=== PATIENT | female | born 1985 | race Caucasian/White ===

== ENCOUNTER → 2018-12-04 | Day surgery (SDC) | payer OTHER ==
[~2018-12-04] MED LIST: FENTANYL CITRATE/PF 100MCG/2 ML INJ ONE; LIDOCAINE HCL 2% LOCAL INJ 5 ML SDV VIAL INJ ONE; METOCLOPRAMIDE HCL 10 MG/2ML VIAL ONE; MIDAZOLAM HCL 2 MG/2 ML VIAL ONE; PANTOPRAZOLE 40 MG 10ML VIAL ONE; PROPOFOL IV EMULSION 10 MG/ML 50 ML VIAL ONE; RANITIDINE HCL150 MG PO; TYLENOL WITH C1 EACH PO
--- NOTE | 2018-12-04 10:04 | Diagnostic Imaging Report ---
EXAM: Right upper quadrant abdominal ultrasound INDICATION: Right upper quadrant pain COMPARISON: None. TECHNIQUE: Transverse and longitudinal images of the right upper quadrant abdomen were obtained FINDINGS: Liver: Size: 10.6 cm in the right midclavicular line, normal Appearance: Normal echogenicity, smooth contour Mass: No focal masses Gallbladder: There is a 2.5 cm stone in the gallbladder. No gallbladder distention, wall thickening, pericholecystic fluid, or sonographic Valadez's sign. Gallbladder wall measures 1 mm. Bile Ducts: Intrahepatic Ducts: No dilatation Extrahepatic Ducts: Common bile duct measures 1 mm. Pancreas: Visualized portions of the pancreatic head, neck and proximal body are normal. Kidney: The right kidney measures 8.9 cm without evidence of hydronephrosis or stone. Vessels: Aorta: Visualized portions are normal Inferior Vena Cava: Visualized portions are normal Main Portal Vein: 0.8 cm, normal size with hepatopetal flow. Free Fluid: No ascites or pleural effusion IMPRESSION: Cholelithiasis (2.5cm gallstone) without sonographic evidence of cholecystitis. Signed by: Virgilio Maldonado MD on 12/04/2018 10:00 AM
[2018-12-04 15:50] VITALS: BP 118/70
--- NOTE | 2018-12-05 06:07 | Operative Report ---
DATE OF PROCEDURE: 12/04/2018 SURGEON: Boni Contreras MD PROCEDURE: EGD with biopsies. INDICATIONS FOR EGD: Acid reflux, heartburn. MEDICATIONS: The patient was done under MAC. Please see anesthesiologist's note. PROCEDURE IN DETAIL: With the patient in left lateral decubitus position, the flexible fiberoptic Olympus gastroscope was introduced into the esophagus under direct visualization without any difficulty. A minute nodule was noted in the cervical esophagus that was removed per the cold biopsy forceps. Mucosa overlying the distal esophagus revealed some patchy areas of erythema and there was a focal raised area at the GE junction that was biopsied. The scope was then advanced with ease into the stomach. Mucosa overlying the antrum and the body revealed some diffuse erythema, xvyu-op-yytxezpr edema, and biopsies were obtained and sent to stain for Helicobacter pylori. Pylorus was normal contour and shape, was intubated with ease and the scope was advanced all the way to the second portion of the duodenum. Biopsies were obtained from the second portion as well as the duodenal bulb to rule out sprue. The scope was then withdrawn back into the stomach and retroflexed, and mucosa overlying the fundus and cardia appeared to be within normal limits. The scope was then straightened out, was subsequently withdrawn, and the patient tolerated procedure well. IMPRESSION: 1. Minute nodule, cervical esophagus, removed per the cold biopsy forceps. 2. Distal esophagitis. 3. Focal raised area, gastroesophageal junction, biopsied. 4. Gastritis, biopsied, biopsies sent to stain for Helicobacter pylori. 5. Rule out sprue. PLAN: Follow up histology. Initiate Protonix 40 mg 1 p.o. q.a.m. before meals. Boni Contreras MD [facility] [place] /[id number] cc: Naeem Biggs DO
== END | disposition home or self-care (01) ==
LOC: OR 08:38
PROVIDERS: ATTEND Internal Medicine Gastroenterology
DX: R10.11 Right upper quadrant pain (principal); K21.0 Gastro-esophageal reflux disease with esophagitis; R12 Heartburn; Z88.0 Allergy status to penicillin; Z68.27 Body mass index [BMI] 27.0-27.9, adult; K29.70 Gastritis, unspecified, without bleeding; K29.50 Unspecified chronic gastritis without bleeding
CPT/HCPCS: 36415; 43239; 76705; 84702; C9113; J2001; J2250; J2704; J2765; J3010

== ENCOUNTER 2018-12-06 12:02 | Observation (INO) | payer OTHER ==
[~2018-12-06] VITALS: Ht 149.9 cm; Wt 60.3 kg
[~2018-12-06 12:02] MED LIST changes: -FENTANYL CITRATE/PF 100MCG/2 ML INJ ONE; -LIDOCAINE HCL 2% LOCAL INJ 5 ML SDV VIAL INJ ONE; -METOCLOPRAMIDE HCL 10 MG/2ML VIAL ONE; -MIDAZOLAM HCL 2 MG/2 ML VIAL ONE; -PANTOPRAZOLE 40 MG 10ML VIAL ONE; -PROPOFOL IV EMULSION 10 MG/ML 50 ML VIAL ONE; -TYLENOL WITH C1 EACH PO
--- OUTSIDE RECORDS SUMMARY | 2018-12-06 12:06 | XMS REPORT | Clinical Summary ---
Author Author [facility] Address Unknown Phone Unavailable Care Team Providers Care Pedodontist Name Role Phone Edmundo Biggs MD PCP Allergies Comments Active Allergy Reactions Severity Noted Date Vomiting and diarrhea Penicillins GI 10/29/2015 Intolerance Medications End Date Status Medication Sig Dispensed Refills Start Date Active ibuprofen (ADVIL,MOTRIN) Take 400 mg 0 400 MG tablet by mouth every 6 (six) hours as needed for mild pain. Active amLODIPine (NORVASC) 5 MG Take 5 mg by 0 tablet mouth daily. 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 Mechanical complication of internal orthopedic device 10/29/2015 Post-traumatic osteoarthritis of right hip 10/29/2015 Gait abnormality 10/29/2015 Muscle weakness of lower extremity 10/29/2015 Muscle atrophy of lower extremity 10/29/2015 Family History Medical History Relation Name Comments Diabetes Father Heart attack Father Heart disease Father Hypertension Father Stroke Father Hypertension Mother Relation Name Status Comments Father Alive Mother Alive Social History Date Tobacco Use Types Packs/Day Years Used Current Every Day Smoker Cigarettes 1 16 Drinks/Week oz/Week Comments Alcohol Use No Sex Assigned at Date Recorded Not on file Industry Job Start Date Occupation Not on file Not on file Not on file Travel End Travel History Travel Start No recent travel history available. Last Filed Vital Signs Not on file Plan of Treatment Health Maintenance Due Date Last Done Comments CERVICAL CANCER SCREENING 2005 INFLUENZA VACCINE 10/10/2018 Implants Device Identifier Shelf Expiration Date Model / Serial / Lot Implanted Type Area Manufactur er 04/11/2025 [id number] / / [id number] Shell Actblr Clstr Hol Sz Ll 58mm Hip Joint Right: Hip [employer] Continuum - [id number] Implants Implanted: 11/24/2015 at [facility] (Quantity not on file) 04/11/2024 [id number] / / [id number] Head Fml 02/22 Tprd Cermc 40x0mm Hip Joint Right: Hip [employer] Biolox Delta - [id number] Implants Implanted: 11/24/2015 at [facility] (Quantity not on file) 05/09/2020 00 [id number] 40 / / [id number] Vit E Liner Neutral Ll 40 IPM Right: Hip [employer] - [id number] IMPLANT Implanted: 11/24/2015 at [facility] (Quantity not on file) 03/11/2021 01 [id number] / / [id number] Fitmore Hip Stem B, Size 1 - IPM Right: Hip [employer] [id number] IMPLANT Implanted: 11/24/2015 at [facility] (Quantity not on file) Results Not on fileafter 12/05/2017 Insurance Type Payer Benefit Subscriber ID Effective Phone Address Plan / Dates Group PPO CIGNA CIGNA PPO xxxxxxxxxxx 2016-P resent PPO BCBS BCBS OUT xxxxxxxxxxxx 2015-P OF STATE resent Advance Directives For more information, please contact: [phone] Patient Title One Reading Teacher Explanation Type Date Recorded Advance Directives, Living Will and Medical Power of Credit Analysis Manager
--- OUTSIDE RECORDS SUMMARY | 2018-12-06 12:06 | XMS REPORT ---
Author Author [facility] Address Unknown Phone Unavailable Care Team Providers Care Com Writer Name Role Phone NICO KYLE Unavailable Unavailable Problems This patient has no known problems. Allergies, Adverse Reactions, Alerts This patient has no known allergies or adverse reactions. Medications This patient has no known medications. Results Test Description Test Time Test Comments Text Results Atomic Results Result Comments US ABDOMEN LIMITED 2018-12-04 09:58:00 [place] [address] Patient Name: SHANNON QUESADA MR #: [id number] : 1985 Age/Sex: 33/F Req #: [id number] Adm Physician: Ordered by: NICO KYLE MD Report #: [id number] Location: OR Room/Bed: Procedure: [id number] US/US ABDOMEN LIMITED Exam Date: 12/04/18 Exam Time: 915 REPORT STATUS: Signed EXAM: Right upper quadrant abdominal ultrasound INDICATION: Right upper quadrant pain COMPARISON: None. TECHNIQUE: Transverse and longitudinal images of the right upper quadrant abdomen were obtained FINDINGS: Liver: Size: 10.6 cm in the right midclavicular line, normal Appearance: Normal echogenicity, smooth contour Mass: No focal masses Gallbladder: There is a 2.5 cm stone in the gallbladder. No gallbladder distention, wall thickening, pericholecystic fluid, or sonographic Valadez's sign. Gallbladder wall measures 1 mm. Bile Ducts: Intrahepatic Ducts: No dilatation Extrahepatic Ducts: Common bile duct measures 1 mm. Pancreas: Visualized portions of the pancreatic head, neck and proximal body are normal. Kidney: The right kidney measures 8.9 cm without evidence of hydronephrosis or stone. Vessels: Aorta: Visualized portions are normal Inferior Vena Cava: Visualized portions are normal Main Portal Vein: 0.8 cm, normal size with hepatopetal flow. Free Fluid: No ascites or pleural effusion IMPRESSION: Cholelithiasis (2.5cm gallstone) without sonographic evidence of cholecystitis. Signed by: Eliot Tijerina MD on 12/04/2018 10:00 AM Dictated By: ELIOT TIJERINA MD 1000 Transcribed By: KIP on 12/04/18 1000 COPY TO: NICO KYLE MD
[2018-12-06] MEDS ORDERED: LIDOCAINE HCL 2% LOCAL INJ 5 ML SDV VIAL INJ ONE (14:10)
[2018-12-06] MEDS ORDERED: SUCCINYLCHOLINE 200 MG/10 ML SYR ONE (14:10)
[2018-12-06] MEDS ORDERED: ONDANSETRON HCL INJ 2MG/ML 2ML 2 MG/ML VIAL ONE ×2 (14:10→15:03)
[2018-12-06] MEDS ORDERED: DESFLURANE 240 ML BTL INH ONE (14:10)
[2018-12-06] MEDS ORDERED: PROPOFOL IV EMULSION 10 MG/ML 20 ML VIAL ONE (14:10)
[2018-12-06] MEDS ORDERED: DEXAMETHASONE SOD PHOS INJ 4 MG/ML VIAL ONE (14:10)
[2018-12-06] MEDS ORDERED: ACETAMINOPHEN 1000 MG/100 ML IV ONE (14:10)
[2018-12-06] MEDS ORDERED: ONDANSETRON HCL INJ 2MG/ML 2ML 2 MG/ML VIAL IV PRN (14:30)
--- NOTE | 2018-12-06 14:56 | NUR ---
[facility] CALLED FOR TRANSPORT 45MIN ETA
[2018-12-06] MEDS ORDERED: SODIUM CHLORIDE 0.9% 1000ML 1,000 ML ONE (15:03)
[2018-12-06] MEDS: SODIUM CHLORIDE 0.9% 1000ML 1,000 ML IV SCH ×2 (15:04→22:20)
--- OUTSIDE RECORDS SUMMARY | 2018-12-06 15:24 | XMS REPORT | Clinical Summary ---
Author Author [facility] Address Unknown Phone Unavailable Care Team Providers Care Shipper And Receiving Name Role Phone Edmundo Biggs MD PCP [...] Lot Implanted Type Area Manufactur er 04/11/2025 [id number] / / [id number] Shell Actblr Clstr Hol Sz Ll 58mm Hip Joint Right: Hip [employer] Continuum - [id number] Implants Implanted: 11/24/2015 at [facility] (Quantity not on file) 04/11/2024 [id number] / / [id number] Head Fml 02/22 Tprd Cermc 40x0mm Hip Joint Right: Hip [employer] Biolox Delta - [id number] Implants Implanted: 11/24/2015 at [facility] (Quantity not on file) 05/09/2020 00 [id number] 40 / / [id number] Vit E Liner Neutral Ll 40 IPM Right: Hip [employer] - [id number] IMPLANT Implanted: 11/24/2015 at [facility] (Quantity not on file) 03/11/2021 01 [id number] / / [id number] Fitmore Hip Stem B, Size 1 - IPM Right: Hip [employer] [id number] IMPLANT Implanted: 11/24/2015 at [facility] (Quantity not on file) Results Not on fileafter 12/05/2017 Insurance Type Payer Benefit Subscriber ID Effective Phone Address Plan / Dates Group PPO CIGNA CIGNA PPO xxxxxxxxxxx 2016-P resent PPO BCBS BCBS OUT xxxxxxxxxxxx 2015-P OF STATE resent Advance Directives For more information, please contact: [phone] Patient Back End Engineer Explanation Type Date Recorded Advance Directives, Living Will and Medical Power of Song Writer
[2018-12-06 16:27] VITALS: BP 142/94
[2018-12-06] MEDS ORDERED: DIATRIZOATE MEGL/DIATRIZOA SOD 30 ML BTL PO ONE (17:59)
[2018-12-06] MEDS ORDERED: SODIUM CHLORIDE 0.9% 50ML 50 ML ONE (18:52)
[2018-12-06 18:53] LABS: BILIRUBIN,URINE NEGATIVE (NEGATIVE); CLARITY,URINE CLEAR (CLEAR); COLOR,URINE YELLOW (YELLOW); KETONES,URINE NEGATIVE (NEGATIVE); LEUKOCYTE ESTERASE ,URINE NEGATIVE (NEGATIVE); NITRITE,URINE NEGATIVE (NEGATIVE); PROTEIN,URINE DIPSTICK NEGATIVE (NEGATIVE); URINE UROBILINOGEN 0.2 mg/dL (0.2 - 1)
[2018-12-06] MEDS ORDERED: IOPAMIDOL 370 MG/ML 200 ML INFUS..BTL INJ ONE ×2 (18:53→19:02)
--- NOTE | 2018-12-06 18:56 | NUR ---
REPORT RECEIVED FOR PATIENT. PT CURRENTLY OFF UNIT AT RADIOLOGY FOR IMAGES.
--- NOTE | 2018-12-06 19:03 | NUR ---
PT RETURNED BY WHEELCHAIR FROM RADIOLOGY. PT IS AAOX3, RR EVEN AND NON-LABORED, ON ROOM AIR. NO S/SX OF DISTRESS NOTED. PT AMBULATED TO BATHROOM AND BACK TO BED WITHOUT ASSIST. LEFT PT SITTING ON SIDE OF BED, BED IN LOW LOCKED POSITION, SIDE RAILS UPX2, CALL LIGHT AND PHONE WITHIN REACH.
[2018-12-06 19:07] LABS: BACTERIA,URINE MODERATE /HPF; EPITHELIAL CELLS,URINE MANY /LPF; RBC,URINE 0-5 /HPF (0-5)
[2018-12-06] MEDS: CEFTRIAXONE SOD 2 GM/NS 100 ML 100 ML IV SCH (19:10)
--- NOTE | 2018-12-06 19:16 | Diagnostic Imaging Report ---
Frontal and lateral views of the chest. HISTORY: Preop, gallstone surgery, cough COMPARISON: Chest radiographs February 07, 2007. DISCUSSION: Lungs: Prominence of the peribronchial interstitial markings. No evidence of a consolidative pneumonia or pulmonary alveolar edema. Pleura: No pleural effusion or pneumothorax. Heart and mediastinum: The cardiomediastinal silhouette appear(s) unremarkable. Bones and soft tissues: Appear unremarkable. IMPRESSION: 1. Findings which can be seen in the setting of a nonspecific bronchitis. 2. No consolidative pneumonia. Signed by: Dr. Alfie Raya D.O., M.M.M. on 12/06/2018 7:13 PM
--- NOTE | 2018-12-06 19:24 | NUR ---
PAGE PLACED FOR MD WOODS CONCERNING PT REPORTS OF ACID REFLUX. WAITING FOR CALLBACK.
--- NOTE | 2018-12-06 19:29 | NUR ---
SPOKE WITH MD WOODS CONCERNING PT REPORTS OF ACID REFLUX. NEW ORDERS RECEIVED.
[2018-12-06 20:15] VITALS: BP 123/63
--- NOTE | 2018-12-06 20:22 | Diagnostic Imaging Report ---
EXAM: CT of the abdomen and pelvis WITH contrast HISTORY: Gallstones, right upper quadrant abdominal pain, right hip replacement COMPARISON: Right upper quadrant ultrasound December 04, 2018.. TECHNIQUE: The abdomen and pelvis were scanned utilizing a multidetector helical scanner. Coronal and sagittal reformats are provided. PROTOCOL: Routine IV CONTRAST: 100 cc of Isovue-370. ORAL CONTRAST: Dilute Gastrografin RADIATION DOSE: Total DLP: 248.07 mGy*cm Estimated effective dose: (DLP x 0.015 x size factor) Dose modulation, iterative reconstruction, and/or weight based adjustment of the mA/kV was utilized to reduce the radiation dose to as low as reasonably achievable. COMPLICATIONS: None FINDINGS: LOWER THORAX: Mild bibasilar atelectasis. HEPATOBILIARY: No mass. No biliary dilation. A 1.2 cm peripheral calcified stone near the fundus of the gallbladder. No fat stranding about the gallbladder. SPLEEN: No splenomegaly. PANCREAS: No focal masses or ductal dilatation. ADRENALS: No discrete adrenal nodule. KIDNEYS/URETERS: No hydronephrosis, stones, or definite solid mass lesions. PELVIC ORGANS/BLADDER: Beam dasilva artifacts associated with the right hip arthroplasty limits regional evaluation. GI TRACT: The stomach is decompressed, which limits evaluation. No dilation or wall thickening identified. Repeat contrast throughout the small bowel. PERITONEUM / RETROPERITONEUM: No free air or fluid. LYMPH NODES: No pathologically enlarged lymph node. VESSELS: Unremarkable. BONES and JOINTS: No aggressive osseous lesion or acute fracture. The femoral component of the total hip arthroplasty is not entirely included. SOFT TISSUES: Unremarkable. IMPRESSION: 1. Cholelithiasis. 2. Status post total right hip arthroplasty, as above. Signed by: Dr. Alfie Raya D.O., M.M.M. on 12/06/2018 8:19 PM
[2018-12-06] MEDS: PANTOPRAZOLE 40 MG 10ML VIAL IV SCH (20:26)
[2018-12-06] MEDS: METRONIDAZOLE 500MG/NS 100ML 100 ML IV SCH (20:40)
[2018-12-06 20:49] VITALS: BP 123/63
--- NOTE | 2018-12-06 20:50 | NUR ---
CT RESULTS READ TO MD Fatimah MCBRIDE. NEW ORDERS RECEIVED TO CONSULT MD Pascual KYLE.
--- NOTE | 2018-12-06 20:52 | NUR ---
CONSULTATION CALLED TO MD Pascual KYLE CONCERNING CONSULTATION. WAITING FOR CALLBACK.
[2018-12-07] VITALS (8 sets, daily range): BP systolic 100–159; BP diastolic 51–83
--- NOTE | 2018-12-07 00:09 | Consultation ---
DATE OF CONSULTATION: REASON FOR CONSULTATION: Cholecystitis. HISTORY OF PRESENT ILLNESS: The patient is a 33-year-old female, who was admitted from the outlying emergency room because of severe right upper quadrant pain. She was a known case of gallstones. She had recently had an EGD by Dr. Boni Contreras and she was known to have gallstones, but apparently at that time they were asymptomatic and she was also according to her history found to have reflux. According to the patient, the pain got worse today and she was told by Dr. Boni Contreras to come to the emergency room for further treatment. The patient has a history of actually several years history of right upper quadrant pain associated with fatty food intolerance and some nausea. The symptoms are getting worse recently. PAST MEDICAL HISTORY: She has no medical problems. 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 MEDICATIONS: She is currently taking no medicine. ALLERGIES: SHE IS ALLERGIC TO PENICILLIN. SOCIAL HISTORY: The patient smokes and drinks. FAMILY HISTORY: Noncontributory. REVIEW OF SYSTEMS: As per history of present illness. She complains of cough. Her last menstrual period was yesterday and described as normal. She is 0. The patient in addition to what has been stated in the history of present illness complains also of right-sided lower back pain as well as right lower quadrant pain. PHYSICAL EXAMINATION: GENERAL: Reveals a 33-year-old female, awake, alert. She complains of right upper quadrant pain, which at this point is subsiding. HEAD, EYES, EARS, NOSE, AND THROAT: Reveal no acute process. NECK: Supple. LUNGS: Clear. HEART: Reveals sinus rhythm. ABDOMEN: Soft. There is some tenderness on the right side of the abdomen. There are no ventral hernias. No palpable masses. VAGINAL: Deferred. EXTREMITIES: Reveal no clubbing, cyanosis or edema. NEUROLOGIC: Nonfocal. ADMISSION LABORATORY DATA: Reveals a white count of 9 with hematocrit of 40 with a normal platelet count. Normal PT. The admission urinalysis reveals negative nitrite and negative leukocyte esterase. Admission chest x-ray reveals no acute process. Admission ultrasound reveals a 2.5 cm stone in the gallbladder. There is no wall thickening and ductal anatomy is normal. ASSESSMENT: Right upper quadrant pain, severe with a large stone. The patient also complains of right lower quadrant pain. Impression is cholecystitis. PLAN: The plan is to admit the patient. Intravenous antibiotics. Because of the complaints of pain in the right lower quadrant, I am going to go ahead and order a CAT scan of the abdomen and pelvis to make sure that there is no other pathology in the area of the pelvis of the right lower quadrant. Thank you very much. MD BLAIRE Maria/MODL /[id number]
--- NOTE | 2018-12-07 03:00 | NUR ---
NOTIFIED MD Pascual KYLE OF CONSULTATION. NO NEW ORDERS.
[2018-12-07] MEDS: METRONIDAZOLE 500MG/NS 100ML 100 ML IV SCH (04:06)
[2018-12-07] MEDS: SODIUM CHLORIDE 0.9% 1000ML 1,000 ML IV SCH (05:41)
[2018-12-07 06:45] LABS: BASOPHILS % 0.3 % (0.0-1.0); EOSINOPHILS # (AUTO) 0.1 (0.0-0.4); EOSINOPHILS % 0.8 % (0.0-6.0); HEMATOCRIT 35.6 % (34.2-44.1); HEMOGLOBIN 11.7 g/dL (12.0-16.0); LYMPHOCYTES # (AUTO) 1.7 (1.0-3.2); LYMPHOCYTES % 28.6 % (18.0-39.1); MEAN CORPUSCULAR HEMOGLOBIN 32.1 pg (28-32); MEAN CORPUSCULAR HGB CONC 32.9 g/dL (31-35); MEAN CORPUSCULAR VOLUME 97.5 fL (81-99); MONOCYTES # (AUTO) 0.5 (0.2-0.8); NEUTROPHILS # (AUTO) 3.7 (2.1-6.9); NEUTROPHILS % 61.1 % (38.7-80.0); PLATELET COUNT 176 x10e3/uL (140-360); RED BLOOD COUNT 3.65 x10e6/uL (3.6-5.1); RED CELL DISTRIBUTION WIDTH 13.8 % (11.7-14.4)
[2018-12-07 06:55] LABS: INR 0.91; PROTHROMBIN TIME 12.7 seconds (11.9-14.5)
[2018-12-07 06:56] LABS: PARTIAL THROMBOPLASTIN TIME 28.3 seconds (23.8-35.5)
[2018-12-07 07:04] LABS: ALANINE AMINOTRANSFERASE 13 IU/L (0-55); ALBUMIN 2.7 g/dL (3.5-5.0); ALBUMIN/GLOBULIN RATIO 1.1 (0.8-2.0); ALKALINE PHOSPHATASE 83 IU/L (40-150); ANION GAP 9.6 mmol/L (8-16); BLOOD UREA NITROGEN 8 mg/dL (7-26); BUN/CREATININE RATIO 9 (6-25); CALCIUM 7.8 mg/dL (8.4-10.2); CARBON DIOXIDE 25 mmol/L (22-29); CHLORIDE 112 mmol/L (98-107); CREATININE, SERUM 0.87 mg/dL (0.57-1.11); EST GLOMERULAR FILTRATION RATE > 60 ML/MIN (60-); GLUCOSE 77 mg/dL (74-118); POTASSIUM 3.6 mmol/L (3.5-5.1); SODIUM 143 mmol/L (136-145)
--- NOTE | 2018-12-07 07:50 | Diagnostic Imaging Report ---
EXAMINATION: CHEST SINGLE (PORTABLE) INDICATION: Preop radiograph COMPARISON: Chest radiograph 12/06/2018 FINDINGS: AP view TUBES and LINES: None. LUNGS: Lungs are well inflated. Lungs are clear. There is no evidence of pneumonia or pulmonary edema. PLEURA: No pleural effusion or pneumothorax. HEART AND MEDIASTINUM: The cardiomediastinal silhouette is unremarkable. BONES AND SOFT TISSUES: No acute osseous lesion. Soft tissues are unremarkable. UPPER ABDOMEN: No free air under the diaphragm. IMPRESSION: No acute thoracic radiographic abnormality. Signed by: Lalo Orellana DO on 12/07/2018 7:47 AM
[2018-12-07] MEDS ORDERED: BUPIVACAINE 0.25%/EPI 30ML SDV INJ ONE (08:48)
[2018-12-07] MEDS: PANTOPRAZOLE 40 MG 10ML VIAL IV SCH ×3 (09:00→20:24)
[2018-12-07] MEDS ORDERED: SCOPOLAMINE 1.5 MG PATCH ONE (09:04)
--- NOTE | 2018-12-07 09:50 | NUR ---
PT NOT IN ROOM WHEN ATTEMPTED DPA
[2018-12-07] MEDS ORDERED: ONDANSETRON HCL INJ 2MG/ML 2ML 2 MG/ML VIAL IV PRN (11:00)
[2018-12-07] MEDS ORDERED: HYDROCODONE/APAP 7.5MG-325MG 1 EA TAB PO PRN (11:00)
[2018-12-07] MEDS ORDERED: FENTANYL CITRATE/PF 100MCG/2 ML INJ ONE ×2 (11:18→14:31)
[2018-12-07] MEDS: DEXTROSE 5%/LACTATED RINGERS 1,000 ML IV SCH (11:48)
[2018-12-07] MEDS: HYDROMORPHONE 1MG/1ML INJ IV PRN (11:55)
--- NOTE | 2018-12-07 11:55 | Operative Report ---
DATE OF PROCEDURE: 12/07/2018 SURGEON: Sergio Solano MD PREOPERATIVE DIAGNOSIS: Cholelithiasis, cholecystitis. POSTOPERATIVE DIAGNOSIS: Cholelithiasis, cholecystitis. PROCEDURE PERFORMED: Laparoscopic cholecystectomy. ANESTHESIA: General. ESTIMATED BLOOD LOSS: Minimal. DRAINS: None. COMPLICATIONS: None. INDICATION AND FINDINGS: A 33-year-old female admitted because of severe right upper quadrant pain. She had longstanding history of right upper quadrant pain and fatty food intolerance. She was evaluated by Gastroenterology and found to have cholelithiasis and reflux. The patient's pain has been present for symptoms, got really worse the day of admission, reason for the admission. Her liver chemistries were normal preoperatively. Then, an ultrasound revealed a large stone. No ductal dilatation. The CT scan of the abdomen revealed no other pathology. The patient's intraoperative findings were cholelithiasis with somewhat thickened and long gallbladder wall containing a large stone in the neck. There was no ductal dilatation. All of this was consistent with chronic cholecystitis. DESCRIPTION OF PROCEDURE: With the patient lying on the operative table in the supine position after administration of general anesthesia, she was prepped and draped for laparoscopic cholecystectomy. The procedure was begun by establishing the pneumoperitoneum in the right upper quadrant midclavicular line and then pneumoperitoneum was insufflated to 15 mm of pressure. The camera introduced through a 5 mm trocar and then a 10/11 umbilical port and subxiphoid port were placed under direct vision with the camera. Then we placed a right anterior axillary line, 5 mm trocar also and then we had to put the left upper quadrant 5 mm trocar in order to expose the operative field. Once we obtained adequate exposure, retracted the gallbladder cephalad using grasping forceps in the right midclavicular line and the neck laterally and inferiorly with another grasper, began the dissection high in the neck, identified the cystic duct, continued the dissection until we saw the cystic artery. At that point, we transected the cystic duct between titanium clips and also the cystic artery was transected in the same manner. The common duct was identified prior to the transection of two structure and the gallbladder was taken down the liver bed using electrocautery traction and dissection. The gallbladder was detached and placed in an endobag and removed through the umbilical port. The right upper quadrant was then again inspected, irrigated. There was no bile leak, no bleeding, no apparent bowel injury. Then, we released the pneumoperitoneum under direct vision with the camera. We did not see any trocar site. Then, we closed the wound using 0-Vicryl for the umbilical fascia, 3-0 Vicryl for the subcutaneous tissue in that location as well as the subxiphoid port and the skin of all the ports was closed using cindy. 0.25% Marcaine with epinephrine was given as local block at the end of the case. The patient tolerated the procedure well, taken to recovery room in stable condition. MD BLAIRE Maria/CHAD /[id number]
[2018-12-07] MEDS ORDERED: KETOROLAC TROMETHAMINE 30 MG/ML VIAL IM PRN (12:00)
[2018-12-07] MEDS ORDERED: MIDAZOLAM HCL 2 MG/2 ML VIAL ONE (14:31)
--- NOTE | 2018-12-07 15:36 | History and Physical ---
HISTORY OF PRESENT ILLNESS: The patient is a 33-year-old female with past medical history significant for gallstones. She was send by Dr. Karthikeyan Contreras to the emergency room due to acute cholecystitis. She also underwent acute cholecystectomy. The patient of course complaining of pain in the abdomen. No other significant complaints. REVIEW OF SYSTEMS: CARDIOVASCULAR: No chest pain or palpitation. RESPIRATORY: No shortness of breath. No cough. GASTROINTESTINAL: She did have abdominal pain . No vomiting. No diarrhea. GENITOURINARY: No urinary frequency. No dysuria. ALLERGIES: SHE IS ALLERGIC TO PENICILLIN. SOCIAL HISTORY: She does not smoke. She does not drink. PHYSICAL EXAMINATION: VITAL SIGNS: Blood pressure 159/82, temperature 95.6, heart rate 95 per minute, respiratory rate 20 per minute, oxygen saturation 96%. HEART: Showed regular rhythm. Normal S1, S2 sound. LUNGS: Clear bilaterally. ABDOMEN: Soft. She has tenderness around the incision site. LABORATORY DATA: On the BMP; sodium 143, potassium 3.6, chloride 112, CO2 25, BUN 9, creatinine 0.87, glucose 77. On the CBC, white count 6.02, hemoglobin 11.7, hematocrit 35.6, platelet count of 176,000. PT 12.7, INR 0.91, PTT 28.3. AST 16, ALT 13, total bilirubin is 0.5, alkaline phosphatase 83. PLAN OF TREATMENT: Of course, the patient is going to be on liquid diet after surgery. She is on ceftriaxone 2 g IV daily, D5 Ringer's lactate 75 mL an hour. She has Dilaudid 1 mg IV q.4 hours as needed for vxxakkrd-cl-lnycjb pain, [place] 7.5/325 mg tablets one tablet q.4 hours as needed for moderate pain. She is taking Toradol 30 mg IV q.6 hours as needed for severe pain, Zofran 4 mg IV q.4 hours as needed for nausea and vomiting, Protonix 40 mg IV twice a day, and Zofran 4 mg IV q.4 hours as needed. We are going to continue monitoring the patient. Continue monitoring hemoglobin and hematocrit. The patient is doing well after surgery. MD EDSON Khan/CHAD Jaquez: 12/07/2018 12:57:48 /[id number]
[2018-12-07] MEDS: CEFTRIAXONE SOD 2 GM/NS 100 ML 100 ML IV SCH (17:48)
--- NOTE | 2018-12-07 19:18 | NUR ---
WALKING ROUNDS PERFORMED, RECEIVED PT LAYING SEMI FOWLERS IN BED, AAOX3, RR EVEN AND NON-LABORED, ON ROOM AIR. NO S/SX OF DISTRESS NOTED. X4 TROCAR TO ANTERIOR ABD NOTED TO BE CDI. LEFT PT LAYING SEMI FOWLERS IN BED, BED IN LOW LOCKED POSITION, SIDE RAILS UPX2, CALL LIGHT AND PHONE WITHIN REACH.
--- NOTE | 2018-12-07 19:45 | NUR ---
PT AMBULATING IN [place] WITH FAMILY AT SIDE. STEADY GAIT NOTED.
[2018-12-08] MEDS: DEXTROSE 5%/LACTATED RINGERS 1,000 ML IV SCH ×2 (00:19→02:34)
[2018-12-08 00:59] VITALS: BP 110/65
[2018-12-08] MEDS: HYDROMORPHONE 1MG/1ML INJ IV PRN (02:44)
[2018-12-08] MEDS ORDERED: METOCLOPRAMIDE HCL 10 MG/2ML VIAL IV ONE (03:15)
[2018-12-08] MEDS ORDERED: PANTOPRAZOLE 40 MG 10ML VIAL IV ONE (04:00)
[2018-12-08 05:20] VITALS: BP 113/66
[2018-12-08 08:35] LABS: BASOPHILS % 0.1 % (0.0-1.0); HEMATOCRIT 36.4 % (34.2-44.1); HEMOGLOBIN 11.6 g/dL (12.0-16.0); LYMPHOCYTES # (AUTO) 1.1 (1.0-3.2); MEAN CORPUSCULAR HEMOGLOBIN 31.7 pg (28-32); MEAN CORPUSCULAR HGB CONC 31.9 g/dL (31-35); MEAN CORPUSCULAR VOLUME 99.5 fL (81-99); MONOCYTES % 9.9 % (4.4-11.3); NEUTROPHILS % 78.7 % (38.7-80.0); PLATELET COUNT 176 x10e3/uL (140-360); RED BLOOD COUNT 3.66 x10e6/uL (3.6-5.1); RED CELL DISTRIBUTION WIDTH 13.7 % (11.7-14.4)
[2018-12-08 08:57] VITALS: BP 115/69
[2018-12-08] MEDS: PANTOPRAZOLE 40 MG 10ML VIAL IV SCH (08:57)
[2018-12-08 09:17] VITALS: BP 115/69
--- NOTE | 2018-12-08 11:31 | NUR ---
Spoke with Dr. Estevez at this time. Received discharge orders for the patient.
[2018-12-08] MEDS ORDERED: TYLENOL WITH C1 EACH PO (11:33)
[2018-12-08 11:50] VITALS: BP 143/88
--- NOTE | 2018-12-08 11:50 | NUR ---
Discharge instructions completed with patient. Education provided. All questions answered. Prescriptions given for Tylenol #3. Vital signs are stable. All belongings to vehicle by boyfriend. Patient states "soreness to abdomen." No distress noted.
--- NOTE | 2018-12-08 12:09 | NUR ---
Patient discharged off the unit at this time by wheelchair.
== END 2018-12-08 12:09 | disposition home or self-care (01) ==
LOC: FSED 12:02 → ERHOLD 14:20 → MED/SURG 15:50
DX: K80.10 Calculus of gallbladder with chronic cholecystitis without obstruction (principal); I10 Essential (primary) hypertension
CPT/HCPCS: 36415 ×2; 47562; 71045; 71046; 74177; 80053 ×2; 80076; 81001; 81003; 81025; 85025 ×3; 85610 ×2; 85730; 87086; 88304; 99284; C1766; C9113 ×3; G0378 ×3; J0131; J0696 ×3; J1100; J1170 ×2; J2001; J2250; J2405; J2704; J2765; J3010; J7030; J7121; Q9967

== ENCOUNTER 2019-09-30 15:49 | Emergency (ER) | payer OTHER ==
[~2019-09-30] VITALS: Ht 149.9 cm; Wt 61.7 kg
[~2019-09-30 15:49] MED LIST changes: +TYLENOL WITH C1 EACH PO
[2019-09-30] MEDS ORDERED: KETOROLAC TROMETHAMINE 30 MG/ML VIAL ONE (16:38)
[2019-09-30] MEDS ORDERED: ONDANSETRON HCL INJ 2MG/ML 2ML 2 MG/ML VIAL ONE ×2 (16:38→19:44)
[2019-09-30] MEDS ORDERED: SODIUM CHLORIDE 0.9% 1000ML 1,000 ML ONE (16:38)
[2019-09-30] MEDS ORDERED: KETOROLAC TROMETHAMINE 30 MG/ML VIAL IV STA (17:15)
[2019-09-30] MEDS ORDERED: ONDANSETRON HCL INJ 2MG/ML 2ML 2 MG/ML VIAL IV STA ×2 (17:15→19:30)
[2019-09-30] MEDS ORDERED: SODIUM CHLORIDE 0.9% 1000ML 1,000 ML IV STA (17:15)
--- NOTE | 2019-09-30 17:15 | Emergency Department Note ---
History of Present Illnes History of Present Illness Chief Complaint: Abdominal Complaints History of Present Illness This is a 34 year old female, who presents with a 4 hour history of acute onset of LLQ pain, that radiates to her left low back. The pain is "dull and sharp," and constant. She states that she recalls having similar pain @ 12 years ago, when she had a "ruptured ovarian cyst." She denies any history of kidney stones and she has not seen any blood in her urine. LMP 09/25/2019. She has not had any N/V, fever, chills, dysuria, frequency or urgency . Historian: Patient Arrival Mode: Car [employer] Required: No Onset (how long ago): hour(s) (4) Location: LLQ, left low back Quality: sharp, stabbingh Radiation: Reports back Severity: severe Onset quality: sudden Duration (how long): hour(s) (4) Timing of current episode: constant Progression: unchanged Chronicity: new Context: Denies recent illness, Denies recent surgery, Denies new medications Relieving factors: none Exacerbating factors: none Associated symptoms: Denies cough, Denies fever/chills, Denies headaches, Denies loss of appetite, Denies nausea/vomiting, Denies rash, Denies shortness of breath Treatments prior to arrival: none Past Medical/Family History Physician Review I have reviewed the patient's past medical and family history. Any updates have been documented here. Past Medical History Recent Fever: No Clinical Suspicion of Infectio: No New/Unexplained Change in Ment: No Past Medical History: Hypertension, GERD Past Surgical History: Hip Replacement (due to a childhood injury) Other Surgery: Sinus surgery tonsillectomy cervical concession EGD Right hip replacement Social History Smoking Cessation: Current every day smoker Counseling Performed: No Alcohol Use: None Any Illegal Drug Use: No TB Exposure/Symptoms: No Physically hurt or threatened: No Family History Family history of heart diseas: No Other Last Tetanus: UTD Any Pre-Existing Lines (PICC,: No Is patient up to date on immun: Yes Review of Systems Review of Systems Constitutional: Reports no symptoms; Denies chills, Denies fever, Denies malaise EENTM: Reports no symptoms Cardiovascular: Reports no symptoms Respiratory: Reports no symptoms Gastrointestinal: Reports abdominal pain; Denies constipation, Denies diarrhea, Denies nausea, Denies vomiting Genitourinary: Denies dysuria, Denies frequency, Denies hematuria Musculoskeletal: Reports back pain (left low back) Integumentary: Reports no symptoms Neurological: Reports no symptoms Psychological: Reports no symptoms Review of other systems: All other systems negative Physical Exam Related Data Allergies: Coded Allergies: Penicillins (Verified Allergy, Unknown, UPSETS STOMACH, 11/29/18) Vital signs reviewed: Yes Physical Exam CONSTITUTIONAL Constitutional: Present well-developed, Present well-nourished, Present obese HENT HENT: Present normocephalic, Present atraumatic, Present oropharynx clear/moist, Present nose normal HENT L/R: Present left ext ear normal, Present right ext ear normal EYES Eyes: Reports PERRL, Reports conjunctivae normal NECK Neck: Present ROM normal PULMONARY Pulmonary: Present effort normal, Present breath sounds normal CARDIOVASCULAR Cardiovascular: Present regular rhythm, Present heart sounds normal, Present capillary refill normal, Present normal rate GASTROINTESTINAL Abdominal: Present soft, Present bowel sounds normal, Present tender (mil LLQ ttp, no rebound or guarding), Present left CVA tenderness GENITOURINARY Genitourinary: Present exam deferred SKIN Skin: Present warm, Present dry MUSCULOSKELETAL Musculoskeletal: Present ROM normal NEUROLOGICAL Neurological: Present alert, Present oriented x 3, Present no gross motor or sensory deficits PSYCHOLOGICAL Psychological: Present mood/affect normal, Present judgement normal Results Laboratory Laboratory CBC - nl; CMP - nl; UPT - negative; UA - blo - moderate; guevara - trace; Lab results reviewed: Yes Imaging Imaging results reviewed: Yes Impressions Procedure: HOPD/CT ABD/PEL WO CONTRAST-HOPD Exam Date: 09/30/19 Exam Time: 1738 REPORT STATUS: Signed EXAM: CT Abdomen and Pelvis WITHOUT contrast INDICATION: Pelvic pain. Urinary tract infection. COMPARISON: None. TECHNIQUE: Abdomen and pelvis were scanned utilizing a multidetector helical scanner from the lung base to the pubic symphysis without administration of IV contrast. Absence of intravenous contrast decreases sensitivity for detection of focal lesions and vascular pathology. Coronal and sagittal reformations were obtained. Routine protocol was performed. IV CONTRAST: None ORAL CONTRAST: None COMPLICATIONS: None RADIATION DOSE: Total DLP: 543 mGy*cm Estimated effective dose: (DLP x 0.015 x size factor) mSv CTDIvol has been reviewed. It is below the limits set by the Radiation Protocol Committee (RPC). Dose modulation, iterative reconstruction, and/or weight based adjustment of the mA/kV was utilized to reduce the radiation dose to as low as reasonably achievable. FINDINGS: LINES and TUBES: None. LOWER THORAX: Unremarkable HEPATOBILIARY: No focal hepatic lesions. No biliary ductal dilation. GALLBLADDER: Cholecystectomy SPLEEN: No splenomegaly. PANCREAS: No focal masses or ductal dilatation. ADRENALS: No adrenal nodules KIDNEYS/URETERS: Marked left-sided perinephric fat stranding with questionable punctate calcification in the upper left kidney with fat stranding surrounding the proximal left ureter. Suspected punctate stone in the dependent portion of the left side of the urinary bladder. Findings to pyelonephritis or possibly a recently passed left renal stone. No abnormal solid renal masses are seen. Right kidney grossly unremarkable. No hydronephrosis. GI TRACT: No abnormal distention, wall thickening, or evidence of bowel obstruction. Appendix is normal. PELVIC ORGANS/BLADDER: Limited due to metallic artifact. LYMPH NODES: No lymphadenopathy. VESSELS: Unremarkable. PERITONEUM / RETROPERITONEUM: No free air or fluid. BONES: Metallic surgical hardware in the right hip/proximal femur. SOFT TISSUES: Unremarkable. IMPRESSION: Marked left-sided perinephric fat stranding with questionable punctate calcification in the upper left kidney with fat stranding surrounding the proximal left ureter. Suspected punctate stone in the dependent portion of the left side of the urinary bladder. Findings to pyelonephritis or possibly a recently passed left renal stone. No abnormal solid renal masses are seen. Right kidney grossly unremarkable. No hydronephrosis. Signed by: Dr. Stiven Mathew M.D. on 09/30/2019 5:51 PM Dictated By: STIVEN MATHEW MD, MD 50 Transcribed By: KIP on 09/30/191750 COPY TO: FRANCIE NELSON MD~ Diagnostics Tests Diagnostic test(s) reviewed: Yes Assessment & Plan Medical Decision Making MDM - Pain initially mostly relieved with Toradol. A dose of Morphine given, prior to d/c - Pt encouraged to take her blood pressure medications EVERY day, as her blood pressure is elevated here in the ED, and she did not take her B/P medication today. - Recommend that you drink at least 1 gallon of water per day (8 - 16 oz. bottles) - Take medications as directed, though you may take the Tylenol with Codeine every 4 hours if needed for breakthrough pain. - Contact UROLOGY tomorrow to schedule a follow-up appointment regarding this ER visit, and the Diagnosis of: Kidney Stones and Pyelonephritis. - Return to the emergency room if you develop intractable pain, persistent high fever, or vomiting with inability to keep fluids or medication down. Pt voiced understanding of the plan, and questions answered. Assessment & Plan Final Impression: (1) Pyelonephritis (2) Kidney stones (3) Back pain (4) Abdominal pain (5) Hypertension Depart Disposition: HOME, SELF-[facility] Meds Active Scripts Tamsulosin Hcl* (FLOMAX*) 0.4 Mg Cap, 1 TAB PO DAILY for kidney stones for 14 Days, #14 CAP 0 Refills Prov:FRANCIE NELSON MD 09/30/19 Acetaminophen With Codeine (TYLENOL WITH CODEINE #3 TABLET) 1 Each Tablet, 1-2 TAB PO Q6H for pain, #20 TAB 0 Refills Prov:FRANCIE NELSON MD 09/30/19 Ketorolac Tromethamine (TORADOL) 10 Mg Tablet, 1 TAB PO Q6H PRN for PAIN for 5 Days, #20 TAB 0 Refills Prov:FRANCIE NELSON MD 09/30/19 Ondansetron (ONDANSETRON ODT) 8 Mg Tab.rapdis, 1 TAB PO Q6H PRN for nausea, #30 TAB 0 Refills Prov:FRANCIE NELSON MD 09/30/19 Cefdinir (OMNICEF) 300 Mg Capsule, 1 TAB PO BID PRN for kidney infection for 10 Days, #20 CAP 0 Refills Prov:FRANCIE NELSON MD 09/30/19 Reported Medications Acetaminophen With Codeine (TYLENOL WITH CODEINE #3 TABLET) 1 Each Tablet, 300 MG PO Q6H PRN for MODERATE PAIN (4-6), #40 TAB 12/08/18 Ranitidine Hcl (RANITIDINE HCL) 150 Mg Tablet, 300 MG PO BID 11/29/18 Medications in the ED Ondansetron HCl 4 mg STK-MED ONCE .ROUTE ; Start 09/30/19 at 16:38; Stop 09/30/19 at 16:32; Status DC Ketorolac Tromethamine 30 mg STK-MED ONCE .ROUTE ; Start 09/30/19 at 16:38; Stop 09/30/19 at 16:32; Status DC Sodium Chloride 1,000 ml @ ud STK-MED ONCE .ROUTE ; Start 09/30/19 at 16:38; Stop 09/30/19 at 16:32; Status DC FRANCIE NELSON MD Sep 30, 2019 17:15
--- NOTE | 2019-09-30 17:55 | Diagnostic Imaging Report ---
EXAM: CT Abdomen and Pelvis WITHOUT contrast INDICATION: Pelvic pain. Urinary tract infection. COMPARISON: None. TECHNIQUE: Abdomen and pelvis were scanned utilizing a multidetector helical scanner from the lung base to the pubic symphysis without administration of IV contrast. Absence of intravenous contrast decreases sensitivity for detection of focal lesions and vascular pathology. Coronal and sagittal reformations were obtained. Routine protocol was performed. IV CONTRAST: None ORAL CONTRAST: None COMPLICATIONS: None RADIATION DOSE: Total DLP: 543 mGy*cm Estimated effective dose: (DLP x 0.015 x size factor) mSv CTDIvol has been reviewed. It is below the limits set by the Radiation Protocol Committee (RPC). Dose modulation, iterative reconstruction, and/or weight based adjustment of the mA/kV was utilized to reduce the radiation dose to as low as reasonably achievable. FINDINGS: LINES and TUBES: None. LOWER THORAX: Unremarkable HEPATOBILIARY: No focal hepatic lesions. No biliary ductal dilation. GALLBLADDER: Cholecystectomy SPLEEN: No splenomegaly. PANCREAS: No focal masses or ductal dilatation. ADRENALS: No adrenal nodules KIDNEYS/URETERS: Marked left-sided perinephric fat stranding with questionable punctate calcification in the upper left kidney with fat stranding surrounding the proximal left ureter. Suspected punctate stone in the dependent portion of the left side of the urinary bladder. Findings to pyelonephritis or possibly a recently passed left renal stone. No abnormal solid renal masses are seen. Right kidney grossly unremarkable. No hydronephrosis. GI TRACT: No abnormal distention, wall thickening, or evidence of bowel obstruction. Appendix is normal. PELVIC ORGANS/BLADDER: Limited due to metallic artifact. LYMPH NODES: No lymphadenopathy. VESSELS: Unremarkable. PERITONEUM / RETROPERITONEUM: No free air or fluid. BONES: Metallic surgical hardware in the right hip/proximal femur. SOFT TISSUES: Unremarkable. IMPRESSION: Marked left-sided perinephric fat stranding with questionable punctate calcification in the upper left kidney with fat stranding surrounding the proximal left ureter. Suspected punctate stone in the dependent portion of the left side of the urinary bladder. Findings to pyelonephritis or possibly a recently passed left renal stone. No abnormal solid renal masses are seen. Right kidney grossly unremarkable. No hydronephrosis. Signed by: Dr. Stiven Mathew M.D. on 09/30/2019 5:51 PM
--- NOTE | 2019-09-30 18:50 | NUR ---
Urine culture collected and sent to the hospital lab via technical instructor.
[2019-09-30] MEDS ORDERED: CEFTRIAXONE SOD 1 GM/NS 50 ML 50 ML IV ONE (19:30)
[2019-09-30] MEDS ORDERED: MORPHINE SULFATE INJ 4 MG/ML INJ 1ML IV STA (19:30)
[2019-09-30] MEDS ORDERED: CEFDINIR300 MG PO (19:36)
[2019-09-30] MEDS ORDERED: ONDANSETRON ODT8 MG PO (19:37)
[2019-09-30] MEDS ORDERED: KETOROLAC TROME10 MG PO (19:41)
[2019-09-30] MEDS ORDERED: TYLENOL WITH C1 EACH PO (19:42)
[2019-09-30] MEDS ORDERED: FLOMAX0.4 MG PO (19:44)
[2019-09-30] MEDS ORDERED: MORPHINE SULFATE INJ 4 MG/ML INJ 1ML ONE (19:44)
[2019-09-30 20:14] VITALS: BP 160/99
[2019-09-30] MEDS ORDERED: ONDANSETRON HCL 4 MG ORAL DISINTEGRATING TAB ONE (20:33)
== END 2019-09-30 20:14 | disposition home or self-care (01) ==
LOC: FSED 17:20
DX: R10.32 Left lower quadrant pain (principal); N20.0 Calculus of kidney; N12 Tubulo-interstitial nephritis, not specified as acute or chronic; M54.5 Low back pain; I10 Essential (primary) hypertension; K21.9 Gastro-esophageal reflux disease without esophagitis
CPT/HCPCS: 74176; 80053; 81003; 81025; 85025; 87086; 96374; 96376; 99284; J0696; J1885; J2270; J2405; J7030; Q0162

== ENCOUNTER → 2019-10-16 | Outpatient (CLI) | payer OTHER ==
[~2019-10-16] MED LIST changes: +CEFDINIR300 MG PO; +FLOMAX0.4 MG PO; +KETOROLAC TROME10 MG PO; +ONDANSETRON ODT8 MG PO
--- NOTE | 2019-10-16 15:22 | Diagnostic Imaging Report ---
EXAM: US ABDOMEN COMPLETE DATE: 10/16/2019 2:42 PM INDICATION: Abdominal pain COMPARISON: CT abdomen/pelvis without contrast from 09/30/2019 FINDINGS: The visualized pancreas appears unremarkable. The liver is normal in size measuring 12.8 cm in length. Hepatic echogenicity is within normal limits. No focal hepatic abnormality is identified. The main portal vein is patent with antegrade flow and diameter of 0.7 cm, within normal limits. The gallbladder is surgically absent. There is no biliary ductal dilatation. The common bile duct measures 3 mm. The spleen is normal in size measuring 8.4 cm in length and demonstrates an unremarkable sonographic appearance. The kidneys are normal in size measuring 8.7 cm in length on the right and 9.0 cm in length on the left. Cortical thickness and echogenicity are within normal limits. There is no evidence for solid renal mass, hydronephrosis, or shadowing calculi. The visual as portions of the IVC and aorta are within normal limits. There is no ascites visualized. IMPRESSION: Status post cholecystectomy. Otherwise, unremarkable abdominal ultrasound examination. Signed by: Dr. Ankit Faith MD on 10/16/2019 3:18 PM
== END ==
LOC: US 13:25
PROVIDERS: ATTEND Internal Medicine Gastroenterology
DX: R10.32 Left lower quadrant pain (principal)
CPT/HCPCS: 76700

== ENCOUNTER → 2021-09-22 | Day surgery (SDC) | payer BC, OTHER ==
[~2021-09-22] MED LIST changes: +AMLODIPINE BESY10 MG PO; +BENTYL10 MG/1 ML PO; +FENTANYL CITRATE/PF 100MCG/2 ML INJ ONE; +METOCLOPRAMIDE HCL 10 MG/2ML VIAL ONE; +MIDAZOLAM HCL 2 MG/2 ML VIAL ONE; +NEXIUM40 MG PO; +POVIDONE IODINE 0.05% 0.05 % ML PO ONE; +PROPOFOL IV EMULSION 10 MG/ML 20 ML VIAL ONE
== END | disposition home or self-care (01) ==
LOC: OR 10:44
PROVIDERS: ATTEND Internal Medicine Gastroenterology
DX: K29.70 Gastritis, unspecified, without bleeding (principal); K31.7 Polyp of stomach and duodenum; K20.90 Esophagitis, unspecified without bleeding; K21.9 Gastro-esophageal reflux disease without esophagitis; R19.7 Diarrhea, unspecified; D72.820 Lymphocytosis (symptomatic); I10 Essential (primary) hypertension; F17.200 Nicotine dependence, unspecified, uncomplicated; Z88.0 Allergy status to penicillin; Z01.810 Encounter for preprocedural cardiovascular examination; Z01.812 Encounter for preprocedural laboratory examination; Z20.822 Contact with and (suspected) exposure to COVID-19; Z79.899 Other long term (current) drug therapy; Z68.30 Body mass index [BMI] 30.0-30.9, adult
CPT/HCPCS: 0223U; 36415; 43239; 81025; 93005; C9113; J2250; J2704; J2765; J3010